=== PATIENT | female | born 1945 | race Caucasian/White ===

== ENCOUNTER 2021-02-13 14:38 | Inpatient (IN) ==
[2021-02-13] MEDS ORDERED: ACETAMINOPHEN 500 MG TAB PO STA (15:17)
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
[2021-02-13 18:12] LABS: Basophils # (auto) 0.01 K/uL (0-0.2); Basophils % (auto) 0.1 %; Eosinophils # (auto) 0.03 K/uL (0-0.5); Eosinophils % (auto) 0.3 %; Hematocrit (blood only) 37.4 % (37-47); Hemoglobin 12.3 g/dL (12.0-16.0); Immature Granulocytes # (auto) 0.05 K/uL (0.00-0.02); Immature Granulocytes % (auto) 0.5 %; Lymphocytes # (auto) 1.23 K/uL (1.2-3.4); Lymphocytes % (auto) 11.9 %; Mean Corpuscular Hemoglobin 32.5 pg (25-34); Mean Corpuscular Hgb Conc 32.9 g/dL (32-36); Mean Corpuscular Volume 98.7 fL (80-100); Mean Platelet Volume 9.9 fL (7.4-10.4); Monocytes # (auto) 0.33 K/uL (0.11-0.59); Monocytes % (auto) 3.2 %; Neutrophils # (auto) 8.72 K/uL (1.4-6.5); Platelet Count 282 K/uL (130-400); RDW Coefficient of Variation 13.3 % (11.5-14.5); RDW Standard Deviation 48.2 fL (36.4-46.3); Red Blood Count 3.79 M/uL (4.2-5.4); White Blood Count 10.37 K/uL (4.8-10.8)
[2021-02-13 18:34] LABS: Alanine Aminotransferase 41 U/L (12-78); Albumin Level 3.8 gm/dl (3.4-5.0); Aspartate Aminotransferase 54 U/L (15-37); BUN Creatinine Ratio 21.3 (10-20); Blood Urea Nitrogen 14 mg/dl (7-18); Calcium 9.2 mg/dl (8.5-10.1); Carbon Dioxide 26 mmol/L (21-32); Chloride 109 mmol/L (98-107); Est GFR (African American) 100.9 ml/min; Glucose 106 mg/dl (70-99); Magnesium 2.4 mg/dl (1.8-2.4); Potassium 4.1 mmol/L (3.5-5.1); Sodium 140 mmol/L (136-145)
[2021-02-13 18:41] LABS: Partial Thromboplastin Ratio 0.9; Prothrombin Time 10.3 Seconds (9.0-12.0)
[2021-02-13 18:45] LABS: Albumin Globulin Ratio 1.1 (0.9-2); Alkaline Phosphatase 95 U/L (45-117); Bilirubin,Total 0.3 mg/dl (0.2-1); Globulin 3.5 gm/dl (2.5-4.0); Total Protein 7.3 gm/dl (6.4-8.2); Troponin I < 0.015 ng/ml (0-0.045)
[2021-02-13] MEDS ORDERED: OPTIRAY 320 100ml IV ONE (18:47)
[2021-02-13] MEDS ORDERED: KETOROLAC TROMETHAMINE 15 MG/ML VIAL IV ONE (18:52)
[2021-02-13] MEDS ORDERED: SODIUM CHLORIDE 0.9% 1000ML 1,000 ML IV ONE ×2 (19:17→21:34)
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
[2021-02-13] MEDS ORDERED: POLYETHYLENE (MIRALAX) 17 GM PACK PO PRN (23:09)
[2021-02-13] MEDS ORDERED: HYDROmorphone INJ 1 MG/ML SYRINGE IV PRN (23:09)
[2021-02-13] MEDS ORDERED: ACETAMINOPHEN 325 MG TAB PO PRN (23:09)
[2021-02-13] MEDS ORDERED: NALOXONE HCL 0.4 MG/1 ML VIAL/CARP IV PRN (23:09)
[2021-02-13] MEDS ORDERED: MAGNESIUM HYDROXIDE SUSP 30 ML UDC PO PRN (23:09)
[2021-02-13] MEDS ORDERED: bisacodyL 10 MG SUPP PR PRN (23:09)
[2021-02-13] MEDS ORDERED: ONDANSETRON INJ 2 MG/ML 2 ML VIAL IV PRN ×2 (23:09)
[2021-02-13] MEDS ORDERED: diphenhydrAMINE Capsule 25 MG CAP PO PRN (23:33)
[2021-02-13] MEDS: LORazepam 0.5 MG TAB PO PRN (23:54)
[2021-02-13] MEDS: oxyCODONE/ACETAMINOPHEN 5mg/325mg TAB PO PRN (23:54)
[2021-02-14] MEDS: oxyCODONE HCL IR 5 MG TAB (IMMEDIATE RELEASE) PO PRN ×2 (03:28→19:47)
[2021-02-14] MEDS ORDERED: ceFAZolin 2000MG 2,000 MG/15 ML SYR IV SCH ×2 (06:00)
[2021-02-14] MEDS: LEVOTHYROXINE SODIUM 75 MCG TABLET PO SCH (06:10)
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
[2021-02-14] MEDS: FLUoxetine HCL 10 MG CAP PO SCH (07:25)
[2021-02-14] MEDS: oxyCODONE/ACETAMINOPHEN 5mg/325mg TAB PO PRN ×4 (07:28→23:19)
[2021-02-14] MEDS ORDERED: Nursing to Pharmacy Communication SCH (08:00)
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
[2021-02-14 08:33] LABS: Hematocrit (blood only) 32.2 % (37-47); Hemoglobin 10.7 g/dL (12.0-16.0); Mean Corpuscular Hgb Conc 33.2 g/dL (32-36); Mean Corpuscular Volume 96.4 fL (80-100); Mean Platelet Volume 9.7 fL (7.4-10.4); Platelet Count 248 K/uL (130-400); RDW Coefficient of Variation 13.6 % (11.5-14.5); Red Blood Count 3.34 M/uL (4.2-5.4); White Blood Count 6.23 K/uL (4.8-10.8)
[2021-02-14 09:10] LABS: BUN Creatinine Ratio 18.4 (10-20); Calcium 8.6 mg/dl (8.5-10.1); Creatinine Clr Calc Pharmacy 72.7 ml/min; Est GFR (African American) 98.9 ml/min; Est GFR (Non-African American) 85.4 ml/min; Potassium 3.7 mmol/L (3.5-5.1)
[2021-02-14 09:11] LABS: Magnesium 2.3 mg/dl (1.8-2.4)
--- NOTE | 2021-02-14 10:43 | Ultrasound Report ---
EXAMINATION: RENAL ULTRASOUND CLINICAL HISTORY: Renal mass COMPARISON STUDY: CT scan dated 02/13/2021 FINDINGS: The right kidney measures 11.9 cm. The left kidney measures 10.2 cm. There is no evidence of hydronephrosis. There is a 3.5 cm upper pole left renal cyst. There is a 15 mm hypoechoic lower p ole left renal lesion with a few internal echoes. This statistically represents a mildly complex cyst . A six-month follow-up ultrasound or dedicated renal CT scan is recommended. No bladder abnormalities are visualized. Bilateral ureteral jets were visualized. IMPRESSION : 1. 3.5 cm upper pole left renal cyst 2. 15 mm hypoechoic lower pole left renal lesion likely representing a complex cyst. A six-month foll ow-up ultrasound or dedicated renal CT scan is recommended.. ACT 112: Negative or not required by law. Electronically signed by: Rey Dodson M.D. 02/14/2021 10:41 AM
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
[2021-02-14 19:00] LABS: Bacteria Urine Automated Negative (Negative); Bilirubin Urine Negative (Negative); Blood Urine Negative (Negative); Color Urine Dark Yellow; Epithelial Cell Urine Auto >30 /lpf (0-5); Glucose Urine UA Negative (Negative); Ketones Urine Trace (Negative); Leukocyte Esterase Urine Negative (Negative); Nitrite Urine Negative (Negative); Protein Urine Trace (Negative); Specific Gravity Urine > 1.045 (1.000-1.030); Urobilinogen Urine Negative (Negative); pH Urine 5.5 (4.5-7.5)
[2021-02-14 19:05] LABS: Appearance Urine Clear (Clear)
[2021-02-14 19:24] LABS: RBC Urine Automated 0-4 /hpf (0-4)
[2021-02-14] MEDS ORDERED: DOCUSATE SODIUM/SENNA 50/8.6MG TAB PO SCH (21:00)
[2021-02-14] MEDS: ATORVASTATIN 20 MG TAB PO SCH (21:18)
--- NOTE | 2021-02-14 21:32 | Anesthesiology Consultation ---
Date of Service February 14, 2021 Assessment & Plan (1) Encounter for pre-operative examination: Chart Review Chart Review: Acceptable Risk for Surgery and Patient NOT seen in Pre Admission Testing Consults Requested none History Surgery Operation Date: 02/15/21 14:05 Proposed Procedures p Left Open Reduction Internal Fixation Tibial Plateau Fracture Deedee - Israel Salas DO Height/Weight Height: 5 ft 2 in Weight: 88.1 kg Allergies Allergy/AdvReac Type Severity Reaction Status Date / Time No Known Allergies Allergy Verified 05/09/20 08:07 Medications Home Medications Medication Instructions Recorded Confirmed Last Taken atorvastatin 20 mg PO HS 04/19/20 02/13/21 04/24/20 fluoxetine 30 mg PO DAILY 04/19/20 02/13/21 05/08/20 levothyroxine 75 mcg PO DAILYBB 04/19/20 02/13/21 05/09/20 04:00 lorazepam 0.5 mg PO BID PRN 04/19/20 02/13/21 05/08/20 tretinoin [Retin-A] 1 applic TOPICAL HS 04/19/20 02/13/21 05/08/20 diphenhydramine-acetaminophen 1 tab PO HS PRN 02/13/21 02/13/21 Unknown [Tylenol PM Extra Strength] Active Medications Generic Name Dose Route Start Last Admin Trade Name Huangq PRN Reason Stop Dose Admin Atorvastatin Calcium 20 mg 02/14/21 21:00 02/14/21 21:18 Atorvastatin 20 Mg Tab PO 03/16/21 20:59 20 mg HS NICOLA Administration Fluoxetine HCl 30 mg 02/14/21 09:00 02/14/21 07:25 Fluoxetine Hcl 10 Mg Cap PO 03/16/21 08:59 30 mg DAILY NICOLA Administration Levothyroxine Sodium 75 mcg 02/14/21 06:30 02/14/21 06:10 Levothyroxine Sodium 75 Mcg Tablet PO 03/16/21 06:29 75 mcg DAILYBB NICOLA Administration Lorazepam 0.5 mg 02/13/21 23:09 02/13/21 23:54 Lorazepam 0.5 Mg Tab PO 03/15/21 23:08 0.5 mg BID PRN Administration Anxiety Miscellaneous 1 ea 02/14/21 00:00 02/14/21 12:26 *Tretinoin*Order Awaiting Action N/A 03/16/21 00:00 Not Given QS NICOLA Ondansetron HCl 4 mg 02/13/21 23:09 02/13/21 23:54 Ondansetron Inj 2 Mg/Ml 2 Ml Vial IV 03/15/21 23:08 4 mg Q6H PRN Administration Nausea Oxycodone HCl 5 mg 02/13/21 23:09 02/14/21 19:47 Oxycodone Hcl Ir 5 Mg Tab (Immediate Release) PO 02/27/21 23:08 5 mg Q4H PRN Administration MODERATE Pain (4,5,6) & Pre PT Oxycodone/Acetaminophen 1 - 2 tab 02/13/21 23:09 02/14/21 15:32 Oxycodone/Acetaminophen 5mg/325mg Tab PO 02/27/21 23:08 2 tab Q4H PRN Administration Pain Senna/Docusate Sodium 2 tab 02/14/21 21:00 02/14/21 21:19 Docusate Sodium/Senna 50/8.6mg Tab PO 03/16/21 20:59 2 tab HS NICOLA Administration Past Medical History Medical History Anemia Anxiety Depression 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, 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 WNL GERD (gastroesophageal reflux disease) HX Hay fever HX Hyperlipidemia Hypothyroidism Osteoarthritis Scoliosis HX Past Family History Family History Father Colon cancer Diabetes Past Surgical History Surgical History H/O major abdominal surgery 1999 BLADDER, COLON, UTERUS, TIGHTENED AND LIFTED THESE ORGANS History of colonoscopy History of dilatation and curettage History of esophagogastroduodenoscopy (EGD) History of right cataract surgery Stye WITH SURGICAL REPAIR CHILD Social History Smoking Status: Never smoker Hx Alcohol Use: No Alcohol type: hard liquor alcohol intake frequency: a few times a week Hx Substance Use: No substance use type: does not use Physical Exam Vital Signs Last Vital Signs Temp 36.8 C 02/14/21 19:08 Pulse 77 02/14/21 19:08 Resp 20 02/14/21 19:08 BP 107/65 02/14/21 19:08 Pulse Ox 90 02/14/21 19:08 Testing Laboratory Results 02/14/21 08:06 02/14/21 08:06 PT 10.3 Seconds (9.0-12.0) 02/13/21 17:52 INR 1.0 (0.9-1.1) 02/13/21 17:52 APTT 24.0 Seconds (21.0-31.0) 02/13/21 17:52 Urine Color Dark Yellow 02/14/21 18:39 Urine Appearance Clear (Clear) 02/14/21 18:39 Urine pH 5.5 (4.5-7.5) 02/14/21 18:39 Ur Specific [place] > 1.045 (1.000-1.030) H 02/14/21 18:39 Urine Protein Trace (Negative) H 02/14/21 18:39 Urine Glucose (UA) Negative (Negative) 02/14/21 18:39 Urine Ketones Trace (Negative) H 02/14/21 18:39 Urine Nitrite Negative (Negative) 02/14/21 18:39 Ur Leukocyte Esterase Negative (Negative) 02/14/21 18:39 Urine WBC (Auto) 5-10 /hpf (0-5) H 02/14/21 18:39 Urine RBC (Auto) 0-4 /hpf (0-4) 02/14/21 18:39 U Hyaline Cast (Auto) 5-10 /lpf (0-5) H 02/14/21 18:39 U Epithel Cells (Auto) >30 /lpf (0-5) H 02/14/21 18:39 Urine Bacteria (Auto) Negative (Negative) 02/14/21 18:39 Blood Type O Positive 02/14/21 08:06 Antibody Screen NEGATIVE 02/14/21 08:06 Electrocardiogram Date: 02/14/21 Findings: + NSR @ (72) Inferior infarct (cited on or before 02/13/21), when compared with ECG 02/13/21 PAC are now present, criteria for anterior infarct are no longer present. Echocardiogram Date: 02/14/21 EF: 60-65% LV Function: normal Valvular Disease: + no significant valvular disease normal RV systolic function, left atrial size is normal, right atrial size is normal. Other Testing Chest CT 02/13/21 1. No acute traumatic process within the chest, abdomen, or pelvis. 2. Moderate hiatus hernia. 3. Mild thickening of the distal esophagus. This is nonspecific but favors an esophagitis. Follow-up nonemergent endoscopy can be performed for further evaluation. 4. A 1.6 cm hypodense lesion within the lower pole of the left kidney. This favors a hyperdense cyst. Follow-up nonemergent renal ultrasound is recommended to exclude the less likely possibility of a renal mass.
[2021-02-15] MEDS: oxyCODONE/ACETAMINOPHEN 5mg/325mg TAB PO PRN ×3 (03:24→11:46)
[2021-02-15 05:44] LABS: Basophils # (auto) 0.01 K/uL (0-0.2); Basophils % (auto) 0.2 %; Eosinophils # (auto) 0.14 K/uL (0-0.5); Eosinophils % (auto) 2.2 %; Hematocrit (blood only) 30.3 % (37-47); Immature Granulocytes # (auto) 0.02 K/uL (0.00-0.02); Immature Granulocytes % (auto) 0.3 %; Lymphocytes # (auto) 1.45 K/uL (1.2-3.4); Lymphocytes % (auto) 22.9 %; Mean Corpuscular Hemoglobin 31.8 pg (25-34); Mean Corpuscular Volume 96.5 fL (80-100); Mean Platelet Volume 9.5 fL (7.4-10.4); Monocytes % (auto) 4.7 %; Neutrophils % (auto) 69.7 %; Platelet Count 232 K/uL (130-400); RDW Coefficient of Variation 13.7 % (11.5-14.5); RDW Standard Deviation 48.4 fL (36.4-46.3); Red Blood Count 3.14 M/uL (4.2-5.4); White Blood Count 6.32 K/uL (4.8-10.8)
[2021-02-15] MEDS ORDERED: ceFAZolin 2000MG 2,000 MG/15 ML SYR IV SCH (06:00)
[2021-02-15 06:05] LABS: BUN Creatinine Ratio 16.1 (10-20); Calcium 8.2 mg/dl (8.5-10.1); Creatinine Clr Calc Pharmacy 79.4 ml/min; Est GFR (African American) 101.9 ml/min; Est GFR (Non-African American) 87.9 ml/min; Potassium 4.4 mmol/L (3.5-5.1)
[2021-02-15] MEDS: LEVOTHYROXINE SODIUM 75 MCG TABLET PO SCH (06:21)
--- NOTE | 2021-02-15 06:44 | Orthopedic Progress Note ---
Date of Service February 15, 2021 Assessment & Plan (1) Closed fracture of left tibial plateau: We will plan to proceed with open reduction internal fixation of the left proximal tibia later today. She is currently n.p.o. She was seen by cardiology yesterday and had an echocardiogram which did not show any major acute pathology. She is on the operating room schedule for later this afternoon. She will likely be nonweightbearing on the left leg for about 3 months after the procedure. I went over her medical history again in detail and the decision was made to proceed with surgery. Tami Pereira was seen and examined at bedside this morning. Overall is she is doing fairly well. She was seen by the medicine team yesterday. She still having a lot of pain in her left knee. There is some swelling. She has no new complaints.. Review of Systems All systems reviewed & are unremarkable except as noted in HPI & below. Physical Exam On physical examination of the left leg, her leg is out in full extension. A knee immobilizer is in place. There is little bit of swelling but is not too bad. She has active dorsiflexion plantarflexion of her left ankle. Results & Data Results & Data Laboratory Results . Diagnostic Findings . PG Care Time/CCT Total # of Minutes Spent Total Time Spent with Patient: Total time spent is greater than 50% in coordination of care (as documented) at patient's floor/unit and/or counseling patient: Coding Level of Care Code 69879 Subseq Hosp Care Lvl 2 (57 - DECISION FOR SURGERY) Diagnoses Closed fracture of left tibial plateau S82.142A Encounter type: initial encounter (1) Closed fracture of left tibial plateau Encounter type: initial encounter Qualified Code(s): S82.142A - Displaced bicondylar fracture of left tibia, initial encounter for closed fracture
[2021-02-15] MEDS: FLUoxetine HCL 10 MG CAP PO SCH (07:23)
--- NOTE | 2021-02-15 11:05 | Cardiology Progress Note ---
Date of Service February 15, 2021 Assessment & Plan (1) Preop cardiovascular exam: (2) Abnormal EKG: (3) Closed fracture of left tibial plateau: Patient with no prior history of cardiovascular disease. Evaluated in the preop setting surgical repair of tib/fib fracture. She had an abnormal EKG on arrival to ER with anterior and inferior Q waves and poor R wave progression. Possible lead placement. She subsequently underwent echo with normal EF and no wall motion abnormalities. She is considered low risk for perioperative cardiac complications. No further cardiac testing warranted prior to planned surgery today. Case discussed with Dr. Shah. Admission and Anticipated Discharge Date Admission Date: February 13, 2021 Supervising Physician Co-Signing Physician Notes I have seen and evaluated the patient. I reviewed the medical record and discussed the case with Ms. Hernandez. The patient is scheduled for the OR today. Subjective Patient resting in bed comfortably this morning. Denies acute cardiac complaints. Ongoing left leg pain noted. Anticipating surgery today. She denies chest pain or unusual shortness of breath. No fever, cough, chills. No orthopnea PND, lower extremity edema. No dizziness or palpitations. Review of Systems Review of Systems: All systems reviewed & are unremarkable except as noted in HPI & below Physical Exam Constitutional: WD/WN, vitals as above no acute distress Eyes: PERRL, conjunctivae normal, anicteric sclerae Neck: trachea midline, no thyromegaly normal visual inspection Respiratory: normal respiratory effort, lungs clear to auscultation Cardiovascular: RRR, no murmur, no edema Vessels: no JVD Gastrointestinal (Abdomen): normal bowel sounds, soft, nontender, no hepatosplenomegaly Musculoskeletal: no cyanosis or clubbing, extremities motor strength 5/5 Skin: no rashes, warm and dry Neurologic: PERRL, EOMI, accommodation nl, no face palsy, no dysarthria Psychiatric: A+Ox3, euthymic affect Results & Data ([facility]) Vital Signs (Past 12 Hours) Vital Signs Temp Pulse Pulse Resp BP Pulse Ox 02/15/21 07:49 36.9 C 67 18 109/68 90 02/15/21 04:37 37.1 C 83 18 108/72 93 02/14/21 23:42 78 02/14/21 23:29 37.1 C 73 18 112/72 96 Laboratory Results 02/15/21 02/15/21 02/14/21 Range/Units 05:29 05:29 18:39 WBC 6.32 (4.8-10.8) K/uL RBC 3.14 L (4.2-5.4) M/uL Hgb 10.0 L (12.0-16.0) g/dL Hct 30.3 L (37-47) % MCV 96.5 (80-100) fL MCH 31.8 (25-34) pg MCHC 33.0 (32-36) g/dL RDW Std Deviation 48.4 H (36.4-46.3) fL RDW Coeff of [place] 13.7 (11.5-14.5) % Plt Count 232 (130-400) K/uL MPV 9.5 (7.4-10.4) fL Immature Gran % (Auto) 0.3 % Neut % (Auto) 69.7 % Lymph % (Auto) 22.9 % [place] % (Auto) 4.7 % Eos % (Auto) 2.2 % Baso % (Auto) 0.2 % Neut # (Auto) 4.40 (1.4-6.5) K/uL Lymph # (Auto) 1.45 (1.2-3.4) K/uL [place] # (Auto) 0.30 (0.11-0.59) K/uL Eos # (Auto) 0.14 (0-0.5) K/uL Baso # (Auto) 0.01 (0-0.2) K/uL Immature Gran # (Auto) 0.02 (0.00-0.02) K/uL Sodium 137 (136-145) mmol/L Potassium 4.4 D (3.5-5.1) mmol/L Chloride 107 (98-107) mmol/L Carbon Dioxide 27 (21-32) mmol/L Anion Gap 3.0 (3-11) BUN 10 (7-18) mg/dl Creatinine 0.64 (0.6-1.2) mg/dl Est Cr Clr Drug Dosing 79.4 ml/min Est GFR ( Amer) 101.9 ml/min Est GFR (Non-Af Amer) 87.9 ml/min BUN/Creatinine Ratio 16.1 (10-20) Glucose 106 H (70-99) mg/dl Calcium 8.2 L (8.5-10.1) mg/dl Urine Color Dark Yellow Urine Appearance Clear (Clear) Urine pH 5.5 (4.5-7.5) Ur Specific [place] > 1.045 H (1.000-1.030) Urine Protein Trace H (Negative) Urine Glucose (UA) Negative (Negative) Urine Ketones Trace H (Negative) Urine Blood Negative (Negative) Urine Nitrite Negative (Negative) Urine Bilirubin Negative (Negative) Urine Urobilinogen Negative (Negative) Ur Leukocyte Esterase Negative (Negative) Urine WBC (Auto) 5-10 H (0-5) /hpf Urine RBC (Auto) 0-4 (0-4) /hpf U Hyaline Cast (Auto) 5-10 H (0-5) /lpf U Epithel Cells (Auto) >30 H (0-5) /lpf Urine Bacteria (Auto) Negative (Negative) Ur Renal Epithelial Cell Not Reportable Urine Yeast Not Reportable Diagnostic Findings Telemetry reviewed: Normal sinus rhythm. No arrhythmias. Echo results reviewed: Normal LV systolic function with ejection fraction 60 to 65%. No wall motion abnormalities to suggest prior ID. No valvular heart disease. Medications Administered Current Inpatient Medications Acetaminophen (Acetaminophen 325 Mg Tab) 650 mg PO Q4H PRN PRN Reason: Pain or Fever Stop: 03/15/21 23:08 Atorvastatin Calcium (Atorvastatin 20 Mg Tab) 20 mg PO HS NICOLA Stop: 03/16/21 20:59 Last Admin: 02/14/21 21:18 Dose: 20 mg Documented by: Bisacodyl (Bisacodyl 10 Mg Supp) 10 mg [place] DAILY PRN PRN Reason: Constipation Stop: 03/15/21 23:08 Diphenhydramine HCl (Diphenhydramine Capsule 25 Mg Cap) 25 mg PO HS PRN PRN Reason: Insomnia Stop: 03/15/21 23:32 Fluoxetine HCl (Fluoxetine Hcl 10 Mg Cap) 30 mg PO DAILY NICOLA Stop: 03/16/21 08:59 Last Admin: 02/15/21 07:23 Dose: 30 mg Documented by: Hydromorphone HCl (Hydromorphone Inj 1 Mg/Ml Syringe) 1 mg IV Q2H PRN PRN Reason: Pain Stop: 02/27/21 23:08 Cefazolin Sodium (Ancef 2000mg) 2,000 mg in 15 mls @ 3.75 mls/min IV PREOP NICOLA; Protocol Stop: 02/16/21 05:59 Levothyroxine Sodium (Levothyroxine Sodium 75 Mcg Tablet) 75 mcg PO DAILYBB [facility] Stop: 03/16/21 06:29 Last Admin: 02/15/21 06:21 Dose: 75 mcg Documented by: Lorazepam (Lorazepam 0.5 Mg Tab) 0.5 mg PO BID PRN PRN Reason: Anxiety Stop: 03/15/21 23:08 Last Admin: 02/13/21 23:54 Dose: 0.5 mg Documented by: Magnesium Hydroxide (Magnesium Hydroxide Susp 30 Ml Udc) 30 ml PO DAILY PRN PRN Reason: Constipation Stop: 03/15/21 23:08 Miscellaneous (*Tretinoin*Order Awaiting Action) 1 ea N/A QS [facility] Stop: 03/16/21 00:00 Last Admin: 02/15/21 07:06 Dose: Not Given Documented by: Naloxone HCl (Naloxone Hcl 0.4 Mg/1 Ml Vial/Carp) 0.1 mg IV UD PRN PRN Reason: Opiate Overdose Stop: 03/15/21 23:08 Ondansetron HCl (Ondansetron Inj 2 Mg/Ml 2 Ml Vial) 4 mg IV Q6H PRN PRN Reason: Nausea Stop: 03/15/21 23:08 Last Admin: 02/13/21 23:54 Dose: 4 mg Documented by: Ondansetron HCl (Ondansetron Inj 2 Mg/Ml 2 Ml Vial) 4 mg IV Q6H PRN PRN Reason: Nausea/Vomiting Stop: 03/15/21 23:08 Oxycodone HCl (Oxycodone Hcl Ir 5 Mg Tab (Immediate Release)) 5 mg PO Q4H PRN PRN Reason: MODERATE Pain (4,5,6) & Pre PT Stop: 02/27/21 23:08 Last Admin: 02/14/21 19:47 Dose: 5 mg Documented by: Oxycodone/Acetaminophen (Oxycodone/Acetaminophen 5mg/325mg Tab) 1 - 2 tab PO Q4H PRN PRN Reason: Pain Stop: 02/27/21 23:08 Last Admin: 02/15/21 07:23 Dose: 2 tab Documented by: Polyethylene Glycol (Polyethylene (Miralax) 17 Gm Pack) 17 gm PO DAILY PRN PRN Reason: Constipation Stop: 03/15/21 23:08 Senna/Docusate Sodium (Docusate Sodium/Senna 50/8.6mg Tab) 2 tab PO HS NICOLA Stop: 03/16/21 20:59 Last Admin: 02/14/21 21:19 Dose: 2 tab Documented by: (1) Closed fracture of left tibial plateau Encounter type: initial encounter Qualified Code(s): S82.142A - Displaced bicondylar fracture of left tibia, initial encounter for closed fracture
--- NOTE | 2021-02-15 12:21 | History & Physical Bridge Note ---
Date of Service February 15, 2021 History & Physical Bridge Note I have examined the patient, reviewed the History & Physical and in the interval since the performance of the History & Physical I have noted the following changes of clinical significance: no changes noted
[2021-02-15] MEDS ORDERED: fentaNYL citrate 100 MCG/2 ML VIAL ONE (12:45)
[2021-02-15] MEDS ORDERED: MIDAZOLAM HCL 1 MG/ML 2ML VIAL ONE (12:45)
[2021-02-15] MEDS ORDERED: PROPOFOL IV EMULSION 10 MG/ML 20 ML VIAL IV ONE (12:45)
[2021-02-15] MEDS ORDERED: LIDOCAINE 2% 2 ML VIAL/AMP(20MG/ML) INFIL ONE (12:45)
[2021-02-15] MEDS ORDERED: EPINEPHrine INJ 1 MG/ML AMP ONE (12:52)
[2021-02-15] MEDS ORDERED: BUPIVACAINE 0.5 % 5 MG/1 ML MPF 30ML VIAL ONE (12:52)
[2021-02-15] MEDS ORDERED: DEXAMETHASONE SOD INJ 4 MG/ML VIAL ONE ×2 (12:52→13:55)
[2021-02-15] MEDS ORDERED: fentaNYL citrate 100 MCG/2 ML VIAL IV PRN (12:56)
[2021-02-15] MEDS ORDERED: ONDANSETRON INJ 2 MG/ML 2 ML VIAL IV PRN ×2 (12:56→16:31)
[2021-02-15] MEDS ORDERED: ePHEDrine sulfate 50 MG/ML AMP IV PRN (12:56)
[2021-02-15] MEDS ORDERED: ATROPINE SULFATE 0.1 MG/ML 10ML SYR IV PRN (12:56)
[2021-02-15] MEDS ORDERED: FAMOTIDINE/PF 20 MG/2 ML VIAL IV ONE (12:59)
[2021-02-15] MEDS ORDERED: ROCURONIUM BROMIDE 10 MG/ML 5 ML VIAL IV ONE (13:21)
[2021-02-15] MEDS ORDERED: BUPIVACAINE/EPINEPHRINE 0.5% MPF 1:200,000 30 ML VIAL ONE (13:25)
[2021-02-15] MEDS ORDERED: ePHEDrine sulfate 50 MG/ML AMP ONE (13:54)
[2021-02-15] MEDS ORDERED: ONDANSETRON INJ 2 MG/ML 2 ML VIAL ONE (13:54)
[2021-02-15] MEDS ORDERED: GLYCOPYRROLATE 0.2 MG/ML VIAL ONE (14:18)
[2021-02-15] MEDS ORDERED: NEOSTIGMINE METHYLSULFATE 1 MG/ML 10ML VIAL ONE (14:18)
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
--- NOTE | 2021-02-15 15:24 | Fluoroscopy Report ---
FL tibia/fibula LT 2V CLINICAL HISTORY: LT ORIF TIBIAL PLATEAU FX COMPARISON STUDY: 02/13/2021 FLUOROSCOPY TIME: 23 seconds. NUMBER OF FLUOROSCOPIC IMAGES: 4 FINDINGS: 4 intraoperative fluoroscopic spot images demonstrate internal fixation of a lateral tibial plateau fracture with a lateral metallic plate and multiple transverse screws. IMPRESSION: Fluoroscopic spot images demonstrating an internally fixated lateral tibial plateau frac ture. ACT 112: Negative or not required by law. Electronically signed by: Rey Dodson M.D. 02/15/2021 3:23 PM
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
--- NOTE | 2021-02-15 16:15 | XRay Report ---
XR knee LT 1 or 2V routine CLINICAL HISTORY: post op COMPARISON: 02/13/2021 DISCUSSION: The bones are osteopenic. There is been interval internal fixation of a lateral tibial pl ateau fracture with a lateral plate and multiple screws. There are lateral skin harvinder. There is gas present within the soft tissues consistent with recent surgery. IMPRESSION: Internally fixated lateral tibial plateau fracture. ACT 112: Negative or not required by law. Electronically signed by: Rey Dodson M.D. 02/15/2021 4:13 PM
--- NOTE | 2021-02-15 16:27 | Anesthesiology Progress Note ---
Date of Service February 15, 2021 Anesthesia Post Procedure Vital Signs Vital Signs: Temp Pulse Pulse Pulse Resp BP Pulse Ox 02/15/21 16:15 36.6 C 89 15 128/77 94 02/15/21 16:05 36.6 C 85 16 136/71 96 02/15/21 15:55 82 20 133/70 95 02/15/21 15:45 81 17 120/76 94 02/15/21 15:39 37.1 C 89 16 123/69 94 02/15/21 12:18 36.9 C 74 18 110/61 92 02/15/21 11:46 37.2 C 69 18 99/61 L 90 02/15/21 07:49 36.9 C 67 18 109/68 90 02/15/21 04:37 37.1 C 83 18 108/72 93 02/14/21 23:42 78 02/14/21 23:29 37.1 C 73 18 112/72 96 02/14/21 19:08 36.8 C 77 20 107/65 90 Pain Intensity Left Knee: Pain Intensity: 5 Transfer of Care Handoff Completed per policy Notes Mental Status: alert / awake / arousable Patient Amnestic to Procedure: Yes Nausea / Vomiting: adequately controlled Pain: adequately controlled Airway Patency, RR, SpO2: stable & adequate BP & HR: stable & adequate Hydration State: stable & adequate Anesthetic Complications: no major complications apparent Notes: block working well in pacu
[2021-02-15] MEDS ORDERED: oxyCODONE HCL IR 5 MG TAB (IMMEDIATE RELEASE) PO PRN (16:31)
[2021-02-15] MEDS ORDERED: bisacodyL 10 MG SUPP PR PRN (16:31)
[2021-02-15] MEDS ORDERED: MAGNESIUM HYDROXIDE SUSP 30 ML UDC PO PRN (16:31)
[2021-02-15] MEDS ORDERED: HYDROmorphone INJ 0.5 MG/0.5 ML SYR IV PRN (16:31)
[2021-02-15] MEDS ORDERED: NON-FORMULARY MEDICATION (Diphenhydramine-Acetaminophen [Tylenol Pm Extra Strength] 25-500 PO PRN (16:31)
[2021-02-15] MEDS ORDERED: METOCLOPRAMIDE HCL INJ 5 MG/ML 2 ML VIAL IV PRN (16:31)
[2021-02-15] MEDS ORDERED: NALOXONE HCL 0.4 MG/1 ML VIAL/CARP IV PRN (16:31)
[2021-02-15] MEDS: KETOROLAC TROMETHAMINE 15 MG/ML VIAL IV SCH ×2 (17:08→22:55)
[2021-02-15] MEDS: SODIUM CHLORIDE 0.9% 1000ML 1,000 ML IV SCH (17:09)
[2021-02-15] MEDS: SENNA 8.6 MG TAB PO SCH (20:34)
[2021-02-15] MEDS: ceFAZolin 2000MG 2,000 MG/15 ML SYR IV SCH (20:35)
[2021-02-15] MEDS: ATORVASTATIN 20 MG TAB PO SCH (20:36)
[2021-02-15] MEDS: DOCUSATE SODIUM 100 MG CAP PO SCH (20:39)
[2021-02-15] MEDS: ACETAMINOPHEN 500 MG TAB PO SCH (22:54)
[2021-02-16] MEDS: SODIUM CHLORIDE 0.9% 1000ML 1,000 ML IV SCH (03:26)
[2021-02-16] MEDS: ceFAZolin 2000MG 2,000 MG/15 ML SYR IV SCH (04:49)
[2021-02-16] MEDS: KETOROLAC TROMETHAMINE 15 MG/ML VIAL IV SCH ×5 (04:49→23:28)
--- NOTE | 2021-02-16 05:30 | Electrocardiogram Report ---
Test Reason : Blood Pressure : / mmHG Vent. Rate : 067 BPM Atrial Rate : 067 BPM P-R Int : 132 ms QRS Dur : 076 ms QT Int : 400 ms P-R-T Axes : 032 -19 024 degrees QTc Int : 422 ms Normal sinus rhythm Inferior infarct , age undetermined Anterior infarct , age undetermined Abnormal ECG No previous ECGs available Confirmed by Jim Penn ([id number]) on 02/16/2021 5:29:51 AM Referred By: REFERRED SELF Confirmed By:Jim Penn
[2021-02-16] MEDS: ACETAMINOPHEN 500 MG TAB PO SCH ×3 (05:46→22:11)
[2021-02-16] MEDS: LEVOTHYROXINE SODIUM 75 MCG TABLET PO SCH (05:46)
--- NOTE | 2021-02-16 05:59 | Electrocardiogram Report ---
Test Reason : Blood Pressure : / mmHG Vent. Rate : 072 BPM Atrial Rate : 072 BPM P-R Int : 144 ms QRS Dur : 078 ms QT Int : 384 ms P-R-T Axes : 042 -13 035 degrees QTc Int : 420 ms Sinus rhythm with Premature atrial complexes Inferior infarct (cited on or before 13-FEB-2021) Nonspecific ST and T wave abnormality Abnormal ECG When compared with ECG of 13-FEB-2021 17:56, Premature atrial complexes are now Present Criteria for Anterior infarct are no longer Present Confirmed by Jim Penn ([id number]) on 02/16/2021 5:59:27 AM Referred By: REFERRED SELF Confirmed By:Jim Penn
[2021-02-16] MEDS ORDERED: dexAMETHasone 4 MG TAB PO SCH (08:00)
[2021-02-16] MEDS: RIVAROXABAN 10 MG TABLET PO SCH (08:54)
[2021-02-16] MEDS: FLUoxetine HCL 10 MG CAP PO SCH (08:55)
[2021-02-16] MEDS: DOCUSATE SODIUM 100 MG CAP PO SCH ×2 (08:55→20:05)
[2021-02-16] MEDS: MULTIVITAMIN TAB PO SCH (08:55)
[2021-02-16] MEDS: LORazepam 0.5 MG TAB PO PRN (09:01)
[2021-02-16 09:18] LABS: Hematocrit (blood only) 26.7 % (37-47); Hemoglobin 8.7 g/dL (12.0-16.0); Mean Corpuscular Hgb Conc 32.6 g/dL (32-36); Mean Corpuscular Volume 98.2 fL (80-100); Mean Platelet Volume 9.4 fL (7.4-10.4); Platelet Count 216 K/uL (130-400); RDW Coefficient of Variation 13.5 % (11.5-14.5); RDW Standard Deviation 47.9 fL (36.4-46.3); Red Blood Count 2.72 M/uL (4.2-5.4); White Blood Count 8.55 K/uL (4.8-10.8)
[2021-02-16 09:40] LABS: BUN Creatinine Ratio 12.5 (10-20); Calcium 8.4 mg/dl (8.5-10.1); Creatinine Clr Calc Pharmacy 62.7 ml/min; Est GFR (African American) 82.9 ml/min; Est GFR (Non-African American) 71.5 ml/min; Potassium 3.9 mmol/L (3.5-5.1)
--- NOTE | 2021-02-16 14:56 | Orthopedic Progress Note ---
Date of Service February 16, 2021 Assessment & Plan (1) Closed fracture of left tibial plateau: Overall she is doing fairly well. She is having too much pain in the knee. She will probably have more soreness once the femoral nerve block starts to wear off more. She is on Xarelto for DVT prophylaxis. She will be nonweightbearing for 3 months on her left leg. She is orthopedically stable for discharge when medically ready. She can follow-up in our office in 2 weeks for staple removal. Full discharge instructions were placed in the discharge summary. Tami Ryder was seen and examined at bedside today. Overall she is doing fairly well. She is not in too much pain in her left knee. She has been up and sit in a chair. She has no complaints.. Review of Systems All systems reviewed & are unremarkable except as noted in HPI & below. Physical Exam On physical examination of her left knee, the dressing is clean and dry. Her leg is out in full extension. The knee immobilizer is in place. Results & Data Results & Data Laboratory Results . Diagnostic Findings X-rays of the left knee show the fracture to be reduced and the hardware to be in anatomic alignment.. PG Care Time/CCT Total # of Minutes Spent Total Time Spent with Patient: Total time spent is greater than 50% in coordination of care (as documented) at patient's floor/unit and/or counseling patient: Coding Level of Care Code 48434 Post Operative Follow-Up Diagnoses Closed fracture of left tibial plateau S82.142A Encounter type: initial encounter (1) Closed fracture of left tibial plateau Encounter type: initial encounter Qualified Code(s): S82.142A - Displaced bicondylar fracture of left tibia, initial encounter for closed fracture
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
[2021-02-16] MEDS: ATORVASTATIN 20 MG TAB PO SCH (20:02)
[2021-02-16] MEDS: SENNA 8.6 MG TAB PO SCH (20:03)
[2021-02-17] MEDS: KETOROLAC TROMETHAMINE 15 MG/ML VIAL IV SCH ×3 (06:06→12:00)
[2021-02-17] MEDS: ACETAMINOPHEN 500 MG TAB PO SCH ×2 (06:06→14:00)
[2021-02-17] MEDS: LEVOTHYROXINE SODIUM 75 MCG TABLET PO SCH (06:07)
[2021-02-17] MEDS: LORazepam 0.5 MG TAB PO PRN (07:47)
[2021-02-17] MEDS: DOCUSATE SODIUM 100 MG CAP PO SCH (09:07)
[2021-02-17] MEDS ORDERED: FLUoxetine HCL 20 MG CAP PO SCH (09:15)
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
[2021-02-17] MEDS: RIVAROXABAN 10 MG TABLET PO SCH (09:55)
[2021-02-17] MEDS: MULTIVITAMIN TAB PO SCH (09:55)
[2021-02-17] MEDS: FLUoxetine HCL 10 MG CAP PO SCH (11:19)
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
== END 2021-02-17 17:06 | DRG 494 ==
LOC: ED 14:38 → 2N 21:42